=== PATIENT | male | born 1975 | race Two or more races ===

== ENCOUNTER → 2024-09-27 | Outpatient (CLI) | payer MEDICAID, SELFPAY ==
--- NOTE | 2024-09-27 13:13 | XR_ITS ---
Examination: Fingers, left hand fourth digit 3 views Technique: AP, oblique, lateral views left hand fourth digit. Exam date and time: September 27, 2024 1357 hours INDICATIONS: Injury to the hand 8 days ago with fourth digit pain. FINDINGS: Soft tissue swelling about the fourth digit 3 mm chip fracture volar base middle phalanx fourth digit without significant displacement IMPRESSION: Small chip fracture volar base middle phalanx fourth digit
== END | disposition home or self-care (01) ==
PROVIDERS: PCP Physician Assistant; Referring Provider Nurse Practitioner Family; Visit Provider Nurse Practitioner Family
DX: S62.621A Displaced fracture of middle phalanx of left index finger, initial encounter for closed fracture (principal); X58.XXXA Exposure to other specified factors, initial encounter
CPT/HCPCS: 73140

== ENCOUNTER → 2024-10-11 | Outpatient (CLI) | payer MEDICAID, SELFPAY ==
--- NOTE | 2024-10-11 15:34 | XR_ITS ---
Examination: Fingers, left hand fourth digit 3 views Technique: AP, oblique, lateral views left hand fourth digit 3 views. Exam date and time: October 11, 2024 1632 hours INDICATIONS: Injury to the fourth digit September 2024, chip fracture volar base base middle phalanx fourth digit September 27, 2024 FINDINGS: Healing chip fracture volar base middle phalanx fourth digit No significant displacement IMPRESSION: Healing chip fracture at the base of the middle phalanx fourth digit
== END | disposition home or self-care (01) ==
PROVIDERS: PCP Physician Assistant; Referring Provider Nurse Practitioner Family; Visit Provider Nurse Practitioner Family
DX: S62.625A Displaced fracture of middle phalanx of left ring finger, initial encounter for closed fracture (principal); X58.XXXA Exposure to other specified factors, initial encounter
CPT/HCPCS: 73140

== ENCOUNTER → 2024-10-29 | Outpatient (CLI) | payer MEDICAID, SELFPAY ==
--- NOTE | 2024-10-29 12:37 | XR_ITS ---
Examination: Fingers, left hand fourth digit 3 views Technique: AP, oblique, lateral views left hand fourth digit 3 views. Exam date and time: October 29, 2024 1246 hours INDICATIONS: Stiffness left fourth digit 6 months FINDINGS: Again noted chip fracture off the base middle phalanx fourth digit, incomplete healing at this point No foreign body IMPRESSION: Chip fracture volar base middle phalanx fourth digit again noted with incomplete healing
== END | disposition home or self-care (01) ==
LOC: CDIM 12:27
PROVIDERS: PCP Physician Assistant; Referring Provider Nurse Practitioner Family; Visit Provider Nurse Practitioner Family
DX: S62.655D Nondisplaced fracture of middle phalanx of left ring finger, subsequent encounter for fracture with routine healing (principal); X58.XXXD Exposure to other specified factors, subsequent encounter
CPT/HCPCS: 73140

== ENCOUNTER → 2024-11-18 | Outpatient (CLI) | payer MEDICAID, SELFPAY ==
--- NOTE | 2024-11-18 16:03 | XR_ITS ---
Examination: Hand, left 3 views Technique: Hand AP, oblique, lateral 3 views Date and time of exam: November 18, 2024 1615 hours INDICATIONS: Left hand pain months. 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
--- NOTE | 2024-11-18 16:03 | XR_ITS ---
Examination: Wrist, left 3 views Technique: Wrist AP, oblique, lateral 3 views Date and time of exam: November 18, 2024 1615 hours INDICATIONS: Wrist pain months FINDINGS: Mild to moderate narrowing radiocarpal joint Mild osteoarthritis first carpometacarpal joint No acute fracture No avascular necrosis IMPRESSION: Mild to moderate osteoarthritis radiocarpal joint
== END | disposition home or self-care (01) ==
LOC: CDIM 15:54
PROVIDERS: PCP Physician Assistant
DX: M19.042 Primary osteoarthritis, left hand (principal); M19.032 Primary osteoarthritis, left wrist
CPT/HCPCS: 73110; 73130

== ENCOUNTER 2025-01-06 08:30 | Outpatient (RCR) | payer MEDICAID, SELFPAY ==
--- NOTE | 2025-01-05 08:45 | XR_ITS ---
Examination: Nuclear medicine thyroid uptake and scan Exam date and time: January 05, 2025 1949 hrs. Indications: Diagnosis nontoxic single thyroid nodule leg pain 3 months Technique And Findings: Oral administration 206 uCi I-123 6 hour uptake 49.6% normal range 6-24% 24 hour uptake 58.4% normal range 10-36% Enlarged thyroid lobes on the scans Impression: Elevated thyroid uptake values This patient is amenable to oral I-131 radiopharmaceutical therapy in the radiology department as clinically warranted
== END 2025-01-11 23:59 | disposition home or self-care (01) ==
LOC: SNUC 08:30
PROVIDERS: Visit Provider Physician Assistant
DX: E04.1 Nontoxic single thyroid nodule (principal)
CPT/HCPCS: 78013; A9516